=== PATIENT | male | born 1935 | race Caucasian/White ===

== ENCOUNTER 2017-05-31 15:31 | Inpatient (IN) | payer OTHER ==
[~2017-05-31] VITALS: Ht 162.6 cm; Wt 75.2 kg
[2017-05-31 16:50] VITALS: BP 171/79; PULSE 51; TEMP 36.4; BMI 28.2
[2017-05-31] MEDS ORDERED: KPP250 PO (16:59)
[2017-05-31] MEDS ORDERED: ATV/1 PO (16:59)
[2017-05-31] MEDS ORDERED: NITROGLYCERIN 0.4 MG SL PER TAB CHARGE SL PRN (17:00)
[2017-05-31] MEDS ORDERED: ACETAMINOPHEN 325 MG TAB PO PRN (17:00)
[2017-05-31] MEDS ORDERED: XRL10 PO (17:00)
[2017-05-31] MEDS ORDERED: LORAZEPAM 1 MG TAB PO PRN (17:00)
[2017-05-31] MEDS ORDERED: POLYETHYLENE (MIRALAX) 17 GM PACK PO PRN ×2 (17:00→22:30)
[2017-05-31] MEDS ORDERED: MAGNESIUM HYDROXIDE SUSP 30 ML UDC PO PRN (17:00)
[2017-05-31] MEDS ORDERED: ALUMINUM/MAGNESIUM/SIMETH (MAALOX MAX) 30 ML UDC PO PRN (17:00)
--- NOTE | 2017-05-31 17:11 | Progress Note ---
Progress Note Date of Service May 31, 2017. Progress Note ATTENDING NOTE : pt is a direct admission form [facility] Full H& P will be done 81 yo M with dementia/hx of polio /prostate Ca/blindness of one eye /Seizure disorder /Hx of PE -resident at [facility] in [place] Hx of complete heart block s/p permanent pacemaker placement in 06/02/2006 Pacemaker interrogation on 05/21/[address] Steele office shows battery /pacemaker Generator at end of life pt is admitted to [facility] telemetry will continue all diet including Xarelto /Aspirin -per Dr Steele NPO past midnight for pace maker battery change tomorrow by Dr Ivette Smallwood MD
[2017-05-31] MEDS ORDERED: PATIENT'S HEIGHT AND/OR WEIGHT NEEDED SCH (17:15)
--- NOTE | 2017-05-31 17:31 | DIAGNOSTIC IMAGING REPORT ---
CHEST ONE VIEW PORTABLE CLINICAL HISTORY: Preoperative chest COMPARISON STUDY: No previous studies for comparison. FINDINGS: The heart is normal in size. There is aortic tortuosity. There is a right subclavian dual-chamber central venous pacemaker. There is no failure. There is no lobar consolidation. There are no pleural effusions. There is mild basilar interstitial thickening likely chronic.[ IMPRESSION: AP portable study. No acute findings. Electronically signed by: Asif Alvarenga M.D. 05/31/2017 5:29 PM Dictated Date/Time: 05/31/2017 5:29 PM
[2017-05-31 18:27] LABS: INR 1.1 (0.9-1.1)
[2017-05-31 18:42] LABS: ALKALINE PHOSPHATASE 95 U/L (45-117); ALT/SGPT 16 U/L (12-78); AST/SGOT 12 U/L (15-37); BLOOD UREA NITROGEN 32 mg/dl (7-18); CALCIUM 8.4 mg/dl (8.5-10.1); CARBON DIOXIDE 27 mmol/L (21-32); CREATININE 1.19 mg/dl (0.60-1.40); GLUCOSE 95 mg/dl (70-99); POTASSIUM 4.5 mmol/L (3.5-5.1); SODIUM 142 mmol/L (136-145)
[2017-05-31 19:04] LABS: HEMOGLOBIN 12.9 g/dL (14.0-18.0); MEAN CELL VOLUME 90.1 fL (80-100); MEAN CORPUSCULAR HEMOGLOBIN 29.8 pg (25-34); MEAN PLATELET VOLUME 11.6 fL (7.4-10.4); PLATELET COUNT 199 K/uL (130-400); RED CELL DISTRIBUTION WIDTH CV 14.2 % (11.5-14.5); RED CELL DISTRIBUTION WIDTH SD 46.6 fL (36.4-46.3)
[2017-05-31 19:07] LABS: MEAN CORPUSCULAR HGB CONC 33.1 g/dl (32-36)
[2017-05-31] MEDS ORDERED: RIVAROXABAN 20 MG TAB PO SCH (19:30)
[2017-05-31 20:00] VITALS: O2SAT 96
[2017-05-31] MEDS: LEVETIRACETAM 500 MG TAB PO SCH (20:09)
[2017-05-31 20:27] VITALS: BP 174/72; PULSE 49; TEMP 36.3; O2SAT 97
--- NOTE | 2017-05-31 20:49 | History and Physical ---
History & Physical Date & Time of Service: May 31, 2017 at 20:49 Chief Complaint: Pacemaker End Of Life Primary Care Physician: Bao Guzmán .MD History of Present Illness Source: clinic records ([facility] Cardiology Dr Steele /office note ) This is a 81 yo M with medical hx Advance dementia , hx of Polio -per document , BPH , Prostate CA, Seizure disorder, hx of PE on chronic anticoagulation , hx complete heart block s/p pace maker placement -was sent from [facility] office as a direct admit for pacemaker generator change Pt is a resident at [facility] , s/p permanent pacemaker placement on 06/02/2006 for 3 rd degree Av block , recent pacemaker interrogation on 05/21/17 shows ,end of battery life . Evaluated by [facility] Dr Steele today , pt is sent form [facility] office as a direct admission for pacemaker generator change tomorrow AM . pt unable to provide any history due to advanced dementia. Social History Smoking Status: Unknown if Ever Smoked Multi-Drug Resistant Organisms History of MDRO: No Allergies Coded Allergies: No Known Allergies (Unverified , 05/31/17) Home Medications Scheduled Levetiractam (Keppra), 1,000 MG PO BID Rivaroxaban (Xarelto), 20 MG PO DAILY Scheduled PRN Lorazepam (Ativan), 0.5 MG PO Q6H PRN for Anxiety/Agitation Review of Systems Unable to obtain due to dementia Physical Exam Vital Signs Date Time Temp Pulse Resp B/P (MAP) Pulse Ox O2 Delivery O2 Flow Rate FiO2 05/31/17 20:27 36.3 49 20 174/72 (106) 97 Room Air 05/31/17 16:50 36.4 51 18 171/79 Room Air General Appearance: + pertinent finding (elderly male, advance dementia , agitated ) Head: normocephalic, atraumatic Eyes: normal inspection, + pertinent finding (per office note hxof ) Neck: no JVD Respiratory/Chest: lungs clear, normal breath sounds, no respiratory distress Cardiovascular: + bradycardia Abdomen/GI: soft Genitourinary - Male: + pertinent finding (gross hematuria ) Extremities/Musculoskelatal: no pedal edema Neurologic/Psych: + disoriented, + pertinent finding (adavced dementia , no orientation to time ,place and person , mumbling to himself ) Diagnostics Laboratory Results Results Past 24 Hours Test 05/31/17 16:49 05/31/17 17:59 Range/Units White Blood Count 7.50 4.8-10.8 K/uL Red Blood Count 4.33 4.7-6.1 M/uL Hemoglobin 12.9 14.0-18.0 g/dL Hematocrit 39.0 42-52 % Mean Corpuscular Volume 90.1 80-100 fL Mean Corpuscular Hemoglobin 29.8 25-34 pg Mean Corpuscular Hemoglobin Concent 33.1 32-36 g/dl RDW Standard Deviation 46.6 36.4-46.3 fL RDW Coefficient of Variation 14.2 11.5-14.5 % Platelet Count 199 130-400 K/uL Mean Platelet Volume 11.6 7.4-10.4 fL Prothrombin Time 12.0 9.0-12.0 SECONDS Prothromb Time International Ratio 1.1 0.9-1.1 Sodium Level 142 136-145 mmol/L Potassium Level 4.5 3.5-5.1 mmol/L Chloride Level 109 98-107 mmol/L Carbon Dioxide Level 27 21-32 mmol/L Anion Gap 6.0 3-11 mmol/L Blood Urea Nitrogen 32 7-18 mg/dl Creatinine 1.19 0.60-1.40 mg/dl Est Creatinine Clear Calc Drug Dose 43.5 ml/min Estimated GFR () 65.1 Estimated GFR (Non- 56.2 BUN/Creatinine Ratio 27.3 10-20 Random Glucose 95 70-99 mg/dl Calcium Level 8.4 8.5-10.1 mg/dl Total Bilirubin 0.3 0.2-1 mg/dl Direct Bilirubin < 0.1 0-0.2 mg/dl Aspartate Amino Transf (AST/SGOT) 12 15-37 U/L Alanine Aminotransferase (ALT/SGPT) 16 12-78 U/L Alkaline Phosphatase 95 45-117 U/L Total Protein 7.0 6.4-8.2 gm/dl Albumin 3.0 3.4-5.0 gm/dl Globulin 4.0 2.5-4.0 gm/dl Albumin/Globulin Ratio 0.8 0.9-2 Diagnostic Radiology CHEST ONE VIEW PORTABLE CLINICAL HISTORY: Preoperative chest COMPARISON STUDY: No previous studies for comparison. FINDINGS: The heart is normal in size. There is aortic tortuosity. There is a right subclavian dual-chamber central venous pacemaker. There is no failure. There is no lobar consolidation. There are no pleural effusions. There is mild basilar interstitial thickening likely chronic.[ IMPRESSION: AP portable study. No acute findings. EKG Vent. rate 50 BPM [place] interval * ms QRS duration 160 ms QT/QTc 502/457 ms P-R-T axes * -70 68 Ventricular-paced rhythm Abnormal ECG No previous ECGs available Impression Assessment and Plan PACEMAKER END OF LIFE ,GENERATOR/BATTERY EXCHANGE : hx of sinus node dysfunction /3rd degree Av block s/p permanent pacemaker placement on 05/2006 per Cardiology office note -last pacemaker interrogation on 05/21/17 shows end of battery life sent form [facility] as a direct admission to [facility] for pacemaker generator change pt is admitted to Tele EKG sinus tiffany cardia with paced rhythm NPO past midnight Cardiology Dr Steele consulted URINARY RETENTION /HX OF BPH pt had minimum dark /clement color urine out put on the floor incontinent of urine Bladder USG show approx ~250 ml of residual urine hx of BPH /malignant adeno Ca of Prostate , PSA level stable since 2010 per office record unable to insert Mcpherson catheter /developed gross hematuria after attempt ( pt is on Xarelto and Aspirin ) Urology consulted GROSS HEMATURIA WITH ATTEMPT TO INSERT MCPHERSON CATHETER : possible due to localized trauma due to catheter attempt Xarelto /Aspirin on hold , coags within normal limit check H&H q 12 send urine sample for UA /Culture Urology eval HX OF SEIZURE DISORDER: no Sz activity noted on Keppra ADVANCED DEMENTIA : caution for sundowning /delirium fall /aspiration precaution HX OF PULMONARY EMBOLISM : hold Xarelto for hematuria HX OF CVA : Aspirin on hold for hematuria HX OF UTI : ordered for UA and culture sensitivity FULL CODE : DVT PROPHYLAXIS : Scd and teds no anticoagulation due to hematuria DISPOSITION : expected to return back to [facility] once medically stable Social service consulted for discharge planning Level of Care Telemetry Advanced Directives Existing Living Will: No Existing Power of Para Machine Operator: No Resuscitation Status FULL RESUSCITATION VTE Prophylaxis VTE Risk Assessment Done? Y/N: Yes Risk Level: Moderate Given or contraindicated: T.E.DAramis Stockings, SCD's Additional Copies To Raina Steele D.O.
[2017-05-31] MEDS ORDERED: PNEUMOCOCCAL ADMINISTRATION CHARGE ONE (21:15)
[2017-05-31] MEDS ORDERED: PNEUMOCOCCAL POLYSACCHARIDES 25 MCG/0.5 ML VIAL/SYR IM. ONE (21:15)
[2017-05-31] MEDS ORDERED: SODIUM CHLORIDE 0.9% 1000ML 1,000 ML IV SCH (22:15)
[2017-05-31] MEDS ORDERED: POLYETHYLENE (MIRALAX) 17 GM PACK PO ONE (22:19)
[2017-05-31 23:06] VITALS: BP 145/68; PULSE 53; TEMP 36.6; O2SAT 98
[2017-06-01 00:27] LABS: HEMATOCRIT 36.2 % (42-52)
[2017-06-01 05:42] VITALS: BP 116/64; PULSE 54; TEMP 35.9; O2SAT 98
[2017-06-01 05:44] LABS: HEMATOCRIT 37.5 % (42-52); HEMOGLOBIN 12.3 g/dL (14.0-18.0); MEAN CELL VOLUME 89.5 fL (80-100); MEAN CORPUSCULAR HEMOGLOBIN 29.4 pg (25-34); MEAN CORPUSCULAR HGB CONC 32.8 g/dl (32-36); MEAN PLATELET VOLUME 11.2 fL (7.4-10.4); PLATELET COUNT 196 K/uL (130-400); RED CELL DISTRIBUTION WIDTH CV 14.1 % (11.5-14.5); RED CELL DISTRIBUTION WIDTH SD 46.1 fL (36.4-46.3); WHITE BLOOD COUNT 7.82 K/uL (4.8-10.8)
[2017-06-01 06:23] LABS: ALBUMIN 2.7 gm/dl (3.4-5.0); ALT/SGPT 13 U/L (12-78); BLOOD UREA NITROGEN 28 mg/dl (7-18); CALCIUM 7.8 mg/dl (8.5-10.1); CARBON DIOXIDE 26 mmol/L (21-32); CREATININE 0.99 mg/dl (0.60-1.40); GLUCOSE 75 mg/dl (70-99); POTASSIUM 4.2 mmol/L (3.5-5.1); SODIUM 144 mmol/L (136-145)
[2017-06-01 06:25] LABS: ALKALINE PHOSPHATASE 73 U/L (45-117); AST/SGOT 11 U/L (15-37); PHOSPHORUS 3.2 mg/dl (2.5-4.9); TOTAL PROTEIN 6.3 gm/dl (6.4-8.2)
[2017-06-01 07:41] VITALS: BP 129/72; PULSE 54; TEMP 36.4; O2SAT 97
[2017-06-01] MEDS: LEVETIRACETAM 500 MG TAB PO SCH ×2 (09:00→20:28)
[2017-06-01] MEDS ORDERED: ASPIRIN 81 MG ECTAB PO SCH (09:00)
--- NOTE | 2017-06-01 10:19 | Urology Consultation ---
History General Date of Service: Jun 01, 2017. Chief Complaint: incomplete bladder emptying, gross hematuria Primary Care Physician: Bao Guzmán MD If yes, why?: unknown if previously saw urology History of Present Illness 81 yo male with advanced dementia admitted for pacemaker generator change. consulted for incomplete bladder emptying and gross hematuria. Pt with advance dementia, and unable to provide any history. Per reports, he has a hx of BPH and prostate cancer. I have no information on how he was treated for prostate cancer or recent PSA. Pt noted to have >250ml on PVR on admission. Failed attempt to straight cath by staff resulted in gross hematuria. Per RN, the pt has been voiding and leaking in the bed. No hematuria at this time. She also states he is combative and has already pulled out his IV since admission. UC&S pending. Cr is normal. Laboratory Labs were reviewed and are within normal limits unless listed below. Labs are available in the chart and at [facility] Past History BPH, cancer - prostate, dementia, pulmonary embolism, seizure, other (Polio, 3rd degree AV block ) Past Surgical History: other (unknown-pt unable to provide history d/t AMS) Family History unknown- pt unable to provide hx d/t AMS. Social History unknown- pt unable to provide hx d/t AMS Smoking: other (unknown) History of MDRO No Allergies Coded Allergies: No Known Allergies (Unverified , 05/31/17) Medications Home Medications: Home Meds and Scripts Medications Dose Route/Sig Max Daily Dose Days Date Category Xarelto (Rivaroxaban) 10 Mg Tab 20 Mg PO DAILY 10 05/31/17 Reported Ativan (Lorazepam) 1 Mg Tab 0.5 Mg PO Q6H PRN 05/31/17 Reported Keppra (Levetiractam) 250 Mg Tab 1,000 Mg PO BID 05/31/17 Reported Inpatient Medications: Current Inpatient Medications Medications (Trade) Dose Ordered Sig/Adam Route Start Time Stop Time Status Last Admin Dose Admin Acetaminophen (Tylenol Tab) 650 mg Q4H PRN PO 05/31/17 17:00 06/30/17 16:59 Al Hydrox/Mg Hydrox/Simethicone (Maalox Max Susp) 15 ml Q4H PRN PO 05/31/17 17:00 06/30/17 16:59 Magnesium Hydroxide (Milk Of Magnesia Susp) 30 ml Q12H PRN PO 05/31/17 17:00 06/30/17 16:59 Nitroglycerin (Nitrostat Tab) 0.4 mg UD PRN SL 05/31/17 17:00 06/30/17 16:59 Levetiracetam (Keppra Tab) 1,000 mg BID PO 05/31/17 21:00 06/30/17 20:59 05/31/17 20:09 1,000 MG Lorazepam (Ativan Tab) 0.5 mg Q6H PRN PO 05/31/17 17:00 06/30/17 16:59 Sodium Chloride 1,000 ml @ 80 mls/hr [id number] IV 05/31/17 22:15 06/01/17 10:44 06/01/17 01:14 80 MLS/HR Polyethylene (Miralax Powder Packet) 17 gm BID PRN PO 05/31/17 22:30 06/30/17 16:59 Senna (Senokot Tab) 17.2 mg QAM PO 06/01/17 09:00 07/01/17 08:59 Tamsulosin HCl (Flomax Cap) 0.4 mg HS PO 06/01/17 21:00 07/01/17 20:59 UNV Finasteride (Proscar Tab) 5 mg QAM PO 06/02/17 09:00 07/02/17 08:59 UNV Review of Systems Review of Systems Additional Comments: Pt sleeping, not disturbed as he is combative and a poor historian with advanced dementia. Physical Exam Vital Signs: Vital Signs Past 12 Hours Date Time Temp Pulse Resp B/P (MAP) Pulse Ox O2 Delivery O2 Flow Rate FiO2 06/01/17 08:00 Room Air 06/01/17 07:41 36.4 54 16 129/72 (91) 97 Room Air 06/01/17 05:42 35.9 54 16 116/64 (81) 98 Room Air 06/01/17 04:00 Room Air 06/01/17 00:01 Room Air 05/31/17 23:06 36.6 53 16 145/68 (93) 98 Room Air Physical Exam: General Appearance: no apparent distress Neck: no JVD Respiratory/Chest: no respiratory distress, no accessory muscle use Cardiovascular: no JVD Extremities: normal inspection Neurologic/Psychiatric: + pertinent finding (pt sleeping ) Skin: normal color Assessment & Plan Assessment & Plan A/P: BPH with incomplete bladder emptying, hx of gross hematuria, hx of prostate cancer per reports AFVSS. Given the pt has advanced dementia, is combative, and has already pulled out his IV, will avoid placing a morse catheter at this time and allow the pt to leak. Can check bladder scans qshift, and would only consider straight cathing if absolutely needed or he develops ARF. Will start him on Flomax and finasteride for his BPH. Hopefully this will be enough to help with any BPH and incomplete emptying. Will also check a PSA in the morning with his other labs as he has a history of prostate cancer. Suspect his gross hematuria was r/t attempting a traumatic catheterization. UC& S pending. Will observe for now. Thanks for the consult. Will continue to follow along with primary service.
--- NOTE | 2017-06-01 10:28 | Progress Note ---
Internal Med Progress Note Date of Service: Jun 01, 2017. Vital Signs: Date Time Temp Pulse Resp B/P (MAP) Pulse Ox O2 Delivery O2 Flow Rate FiO2 06/01/17 08:00 Room Air 06/01/17 07:41 36.4 54 16 129/72 (91) 97 Room Air 06/01/17 05:42 35.9 54 16 116/64 (81) 98 Room Air 06/01/17 04:00 Room Air 06/01/17 00:01 Room Air 05/31/17 23:06 36.6 53 16 145/68 (93) 98 Room Air 05/31/17 20:27 36.3 49 20 174/72 (106) 97 Room Air 05/31/17 20:00 96 Room Air 05/31/17 16:50 36.4 51 18 171/79 Room Air Lab Results: Results Past 24 Hours Test 05/31/17 17:59 05/31/17 22:30 05/31/17 23:20 06/01/17 05:15 Range/Units White Blood Count 7.50 7.82 4.8-10.8 K/uL Red Blood Count 4.33 4.19 4.7-6.1 M/uL Hemoglobin 12.9 12.0 12.3 14.0-18.0 g/dL Hematocrit 39.0 36.2 37.5 42-52 % Mean Corpuscular Volume 90.1 89.5 80-100 fL Mean Corpuscular Hemoglobin 29.8 29.4 25-34 pg Mean Corpuscular Hemoglobin Concent 33.1 32.8 32-36 g/dl RDW Standard Deviation 46.6 46.1 36.4-46.3 fL RDW Coefficient of Variation 14.2 14.1 11.5-14.5 % Platelet Count 199 196 130-400 K/uL Mean Platelet Volume 11.6 11.2 7.4-10.4 fL Prothrombin Time 12.0 9.0-12.0 SECONDS Prothromb Time International Ratio 1.1 0.9-1.1 Sodium Level 142 144 136-145 mmol/L Potassium Level 4.5 4.2 3.5-5.1 mmol/L Chloride Level 109 112 98-107 mmol/L Carbon Dioxide Level 27 26 21-32 mmol/L Anion Gap 6.0 6.0 3-11 mmol/L Blood Urea Nitrogen 32 28 7-18 mg/dl Creatinine 1.19 0.99 0.60-1.40 mg/dl Est Creatinine Clear Calc Drug Dose 43.5 52.3 ml/min Estimated GFR () 65.1 81.3 Estimated GFR (Non- 56.2 70.1 BUN/Creatinine Ratio 27.3 28.0 10-20 Random Glucose 95 75 70-99 mg/dl Calcium Level 8.4 7.8 8.5-10.1 mg/dl Total Bilirubin 0.3 0.4 0.2-1 mg/dl Direct Bilirubin < 0.1 < 0.1 0-0.2 mg/dl Aspartate Amino Transf (AST/SGOT) 12 11 15-37 U/L Alanine Aminotransferase (ALT/SGPT) 16 13 12-78 U/L Alkaline Phosphatase 95 73 45-117 U/L Total Protein 7.0 6.3 6.4-8.2 gm/dl Albumin 3.0 2.7 3.4-5.0 gm/dl Globulin 4.0 3.6 2.5-4.0 gm/dl Albumin/Globulin Ratio 0.8 0.8 0.9-2 Urine Color BROWN Urine Appearance CLOUDY CLEAR Urine pH 5.5 4.5-7.5 Urine Specific [place] 1.025 1.000-1.030 Urine Protein 1+ NEG Urine Glucose (UA) NEG NEG Urine Ketones NEG NEG Urine Occult Blood 3+ NEG Urine Nitrite NEG NEG Urine Bilirubin NEG NEG Urine Urobilinogen NEG NEG Urine Leukocyte Esterase NEG NEG Urine RBC >30 0-4 /hpf Urine WBC 10-30 0-5 /hpf Urine Epithelial Cells 0-5 0-5 /lpf Urine Bacteria NEG NEG Phosphorus Level 3.2 2.5-4.9 mg/dl Magnesium Level 2.2 1.8-2.4 mg/dl Prostate Specific Antigen 1.550 0.000-4.000 ng/ml Test 06/01/17 07:00 Range/Units Microbiology Results 05/31/17 Urine Culture, Received Pending
--- NOTE | 2017-06-01 10:55 | Progress Note ---
Internal Med Progress Note Date of Service: Jun 01, 2017. Provider Documentation: SUBJECTIVE: Seen and examined at bedside History unreliable secondary to advanced dementia history Denies Chest pain, SOB, dizziness, dysuria hematuria resolved OBJECTIVE: Vital Signs-as noted below Physical Exam: General Appearance:Moderately built and nourished, no apparent distress Head: normocephalic, Atraumatic Eyes: normal inspection, EOMI, PERRL Neck: supple, Trachea midline Respiratory/Chest: Normal breath sounds, CTA Cardiovascular: S1, S2, No murmur Abdomen/GI:Soft, Non tender, Bowel sounds present Extremities/Musculoskelatal:normal inspection, no edema Neurologic/Psych:Advanced dementia, Complete neuro exam not performed Skin: normal color, warm Lab data as noted below. ASSESSMENT & PLAN: Pacemaker End of Life, Needs Generator/Battery Exchange: H/O sinus node dysfunction/3rd degree Av block s/p permanent pacemaker placement on 05/2006 Last pacemaker interrogation on 05/21/17 shows end of battery life EKG sinus tiffany cardia with ventricular paced rhythm and PVCs NPO for now Cardiology Dr Steele consulted Urinary Retention H/O BPH, Prostate Cancer Gross hematuria likely secondary to traumatic catheterization PSA level pending Hold Xarelto, Aspirin for now Started on Tamsulosin, Finasteride Monitor Hb Bladder Scan to r/o retention Appreciate Urology Input Urine culture pending H/O Seizure Disorder: Continue Keppra Advanced Dementia: fall /aspiration precaution H/O PE: hold Xarelto for now as hematuria Plan to resume Xarelto tomorrow if stable H/O CVA : Aspirin on hold for hematuria DVT Px: SCDs Code Status: Full Code Disposition: Plan to discharge back to [facility] once medically stable Social service consulted Vital Signs: Date Time Temp Pulse Resp B/P (MAP) Pulse Ox O2 Delivery O2 Flow Rate FiO2 06/01/17 08:00 Room Air 06/01/17 07:41 36.4 54 16 129/72 (91) 97 Room Air 06/01/17 05:42 35.9 54 16 116/64 (81) 98 Room Air 06/01/17 04:00 Room Air 06/01/17 00:01 Room Air 05/31/17 23:06 36.6 53 16 145/68 (93) 98 Room Air 05/31/17 20:27 36.3 49 20 174/72 (106) 97 Room Air 05/31/17 20:00 96 Room Air 05/31/17 16:50 36.4 51 18 171/79 Room Air Lab Results: Results Past 24 Hours Test 05/31/17 17:59 05/31/17 22:30 05/31/17 23:20 06/01/17 05:15 Range/Units White Blood Count 7.50 7.82 4.8-10.8 K/uL Red Blood Count 4.33 4.19 4.7-6.1 M/uL Hemoglobin 12.9 12.0 12.3 14.0-18.0 g/dL Hematocrit 39.0 36.2 37.5 42-52 % Mean Corpuscular Volume 90.1 89.5 80-100 fL Mean Corpuscular Hemoglobin 29.8 29.4 25-34 pg Mean Corpuscular Hemoglobin Concent 33.1 32.8 32-36 g/dl RDW Standard Deviation 46.6 46.1 36.4-46.3 fL RDW Coefficient of Variation 14.2 14.1 11.5-14.5 % Platelet Count 199 196 130-400 K/uL Mean Platelet Volume 11.6 11.2 7.4-10.4 fL Prothrombin Time 12.0 9.0-12.0 SECONDS Prothromb Time International Ratio 1.1 0.9-1.1 Sodium Level 142 144 136-145 mmol/L Potassium Level 4.5 4.2 3.5-5.1 mmol/L Chloride Level 109 112 98-107 mmol/L Carbon Dioxide Level 27 26 21-32 mmol/L Anion Gap 6.0 6.0 3-11 mmol/L Blood Urea Nitrogen 32 28 7-18 mg/dl Creatinine 1.19 0.99 0.60-1.40 mg/dl Est Creatinine Clear Calc Drug Dose 43.5 52.3 ml/min Estimated GFR () 65.1 81.3 Estimated GFR (Non- 56.2 70.1 BUN/Creatinine Ratio 27.3 28.0 10-20 Random Glucose 95 75 70-99 mg/dl Calcium Level 8.4 7.8 8.5-10.1 mg/dl Total Bilirubin 0.3 0.4 0.2-1 mg/dl Direct Bilirubin < 0.1 < 0.1 0-0.2 mg/dl Aspartate Amino Transf (AST/SGOT) 12 11 15-37 U/L Alanine Aminotransferase (ALT/SGPT) 16 13 12-78 U/L Alkaline Phosphatase 95 73 45-117 U/L Total Protein 7.0 6.3 6.4-8.2 gm/dl Albumin 3.0 2.7 3.4-5.0 gm/dl Globulin 4.0 3.6 2.5-4.0 gm/dl Albumin/Globulin Ratio 0.8 0.8 0.9-2 Urine Color BROWN Urine Appearance CLOUDY CLEAR Urine pH 5.5 4.5-7.5 Urine Specific [place] 1.025 1.000-1.030 Urine Protein 1+ NEG Urine Glucose (UA) NEG NEG Urine Ketones NEG NEG Urine Occult Blood 3+ NEG Urine Nitrite NEG NEG Urine Bilirubin NEG NEG Urine Urobilinogen NEG NEG Urine Leukocyte Esterase NEG NEG Urine RBC >30 0-4 /hpf Urine WBC 10-30 0-5 /hpf Urine Epithelial Cells 0-5 0-5 /lpf Urine Bacteria NEG NEG Phosphorus Level 3.2 2.5-4.9 mg/dl Magnesium Level 2.2 1.8-2.4 mg/dl Test 06/01/17 07:00 Range/Units Microbiology Results 05/31/17 Urine Culture, Received Pending
[2017-06-01 11:12] VITALS: Ht 162.6 cm; Wt 75.2 kg
[2017-06-01 11:35] VITALS: BP 179/68; PULSE 56; TEMP 36.4; O2SAT 91
--- NOTE | 2017-06-01 11:35 | Cardiology Consultation ---
Cardiology Consultation Date of Service Jun 01, 2017. Cardiology Consultation NOTE COPIED FROM MY OFFICE VISIT ON 05/31/2017 and addendum as noted below Pt referred to EP due to ppm at [facility] Cardiac Problems CHB s/p ppm in 06/02/2006 Probable h/o CVA as has left sided weakness and facial droop HPI: ~ Pt lives in [place] His is with him today He has not been in our pacemaker clinic since Dec 2016-he was to have monthly TTMs but for some reason these have not been done on patient's end He did finally have TTM on 05/21/20179 which shows ppm at [facility] and referred today- turns out device probably at EOL on 05/21/2017 Pt is demented unable to get a history PMH: Patient Active Problem List Diagnosis Code PERS HX POLIO cane started 02/2009 helps now 11/2010uses walker Z86.12 HYPERTROP PROSTATE W/O URIN OB 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 PSA C61 Convulsions (HCC) R56.9 SCREENING FOR MAL NEOPLASMS COLON ~reev due 2017 Z12.11 Blindness, one eye H54.40 History of peptic ulcer disease Z87.11 Advance directive discussed with patient Z71.89 BRADYCARDIA NOS R00.1 INFORMATION INFO Dyslipidemia, goal LDL below 160 E78.5 Chronic rhinitis J31.0 LOSS OF WEIGHT 08/2010 11/2010 +3 lbs R63.4 History of tobacco use Z87.891 Sinoatrial node dysfunction (HCC) I49.5 Cardiac pacemaker in situ Z95.0 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 aspirin 81 MG chewable tablet Take 81 mg by mouth daily. bisacodyl (BISCOLAX) 10 MG suppository Administer 10 mg into the rectum daily. Incontinence Supply Disposable (INCONTINENCE BRIEF MEDIUM) MISC Use as needed for incontinence 100 Each 11 Levetiracetam (KEPPRA) 1000 MG Tablet Take 1 Tab by mouth 2 times a day. 60 Tab 0 LORAzepam (ATIVAN) 0.5 MG Tablet Take 0.5 mg by mouth 2 times a day. AND as needed every 6 hours milk of magnesia (MILK OF MAGNESIA) 400 MG/5ML suspension Take ~by mouth daily as needed for Constipation. Multiple Vitamins-Minerals (MULTIVITAMIN ADULT) TABS Take ~by mouth. QUEtiapine (SEROQUEL) 25 MG Tablet Take 1 Tab by mouth at bedtime. 30 Tab 0 rivaroxaban (XARELTO) 20 MG Tablet Take 1 Tab by mouth daily with dinner. 60 Tab 0 Past Medical History: Diagnosis Date Blindness, one eye rt Bradycardia Cardiac pacemaker in situ Convulsions Hemiplegic cerebral palsy (HCC) lt leg affected History of tobacco use Hyperlipidemia LDL goal < 100 Hypertrophy (benign) of prostate neg bx Personal history of peptic ulcer disease Sinoatrial node dysfunction (HCC) Past Surgical History: Procedure Laterality Date INSERT/REPLACE PACEMAKER,ATRIAL/VENTRICULAR 06/02/2006 Guidant dual chamber OTHER contracture release from polio Review of patient's allergies indicates: No Known Allergies Family History Problem Relation Age of Onset Heart Disorder Mother at 60yo Other [OTHER] Father at 69y Cancer Brother Family Status Relation Status Mother Father Brother Social History Social History Marital status: Spouse name: N/A Number of children: N/A Years of education: N/A Occupational History RETIRED [employer] Social History Main Topics Smoking status: Former Smoker Packs/day: 1.00 Years: 45.00 Types: Cigarettes, Pipe Quit date: 04/05/1995 Smokeless tobacco: Never Used Alcohol use No Comment: quit 1995 no h/o heavy drinking Drug use: No Sexual activity: Yes Partners: Female Other Topics Concern Service No Seat Belt Yes Social History Narrative Cannot read(sick with polio) 05/13/[address] Review of Systems~ Unable to obtain due to dementia Objective: BP 142/68 | Pulse 64 | Ht 5' 4" (1.626m) | Wt 161 lbs (73.029kg) | BMI 27.64 kg/ m | BSA 1.82 m Physical Exam~ Constitutional: No distress. HENT: Head: Normocephalic~and atraumatic. Eyes: EOM~are normal. Neck: Neck supple. Cardiovascular: Normal rate, regular rhythm, S1 normal~and S2 normal. ~ No murmur~heard. Pulses: ~~~~~Radial pulses are 2+~on the right side, and 2+~on the left side. No LE edema b/l right pectoral region; ppm site no evidence of threatened erosion ~ Pulmonary/Chest: Effort normal~and breath sounds normal. No accessory muscle usage. No respiratory distress. He has no decreased breath sounds. He has no wheezes. He has no rhonchi. He has no rales. Abdominal: Soft. Normal appearance. Neurological: He is alert. Right sided facial droop~ Skin: Skin is warm~and dry. RESULTS: Pacemaker Interrogation Today: Pacemaker at EOL as of 05/21/2017 EC03/22/2017: AV paced 60bpm Echocardiogram 2010: EF 71% Grade I diastolic dysfunction Mild AV sclersosis Mild MAC Mild LA dilatation Ascending aortic aneurysm 4.3cm ASSESSMENT: 1. Pacemaker at EOL on 05/21/2017 2. CHB s/p dual chamber pacemaker 06/02/2006 3. Dementia 4. H/o CVA (?on xarelto) PLAN: -Admit to hospital as device is saying on interrogation today that it is at EOL and patient has underlying CHB -Generator change tomorrow -Discussed procedure and risks which include but are not limited to arrhythmias , strokes, heart attacks, , bleeding and infection with the patient's ; she expressed an understanding and wish to proceed. -I will call his again tomorrow when I am at [facility] to get phone consent Pt' s raquel [phone] will call her in am for consent for procedure -Dr. Smallwood in [facility] accepted the patient -Pt should have CBC and BMP -Ok to continue xarelto and his other medications -NPO after midnight -Discharge back to [facility] after the generator change tomorrow -Device and wound check in our office next week Raina Steele DO ADDENDIUM 06/01/2017: Pt got to [facility] ok-no events overnight. Pt for dual chamber pacemaker generator change today; Pt's was obtained over the phone to give consent. If no problems with generator change patient can return back to [facility] after the procedure. raina Steele, DO
--- NOTE | 2017-06-01 11:36 | History & Physical Bridge Note ---
H&P Re-Evaluation Bridge Note: I have examined the patient, reviewed the History & Physical and in the interval since the performance of the History & Physical I have noted the following changes of clinical significance: No changes noted
--- NOTE | 2017-06-01 11:36 | Pre Sedation Assessment ---
Pre Sedation Assessment General Date of Sedation: Jun 01, 2017. Vital Signs Past 12 Hours Date Time Temp Pulse Resp B/P (MAP) Pulse Ox O2 Delivery O2 Flow Rate FiO2 06/01/17 08:00 Room Air 06/01/17 07:41 36.4 54 16 129/72 (91) 97 Room Air 06/01/17 05:42 35.9 54 16 116/64 (81) 98 Room Air 06/01/17 04:00 Room Air 06/01/17 00:01 Room Air Review Cardiovascular: + bradycardia Lungs: lungs clear Pre-Sedation Airway Assessment Smoking Status: Unknown if Ever Smoked Hx of Sleep Apnea: No Hx of difficult intubation: No Short Thick Neck: No Thyro-mental Distance: < or =3 Finger Breadths Oral Cavity: Dentures, Dental Abnormalities Mallampati Classification: Class II ASA Classification: Class II Procedure Planning Contraindications for Sedation: None Current Medications Reviewed: Yes Notes The planned sedation has been discussed with the patient. Informed Consent was obtained. I have identified the patient, determined the appropriateness of sedation and have assessed the patient immediately prior to the procedure. All medicine(s) and interventions are by my order.
[2017-06-01 11:57] LABS: HEMATOCRIT 39.6 % (42-52); HEMOGLOBIN 13.2 g/dL (14.0-18.0)
[2017-06-01] MEDS ORDERED: BUPIVACAINE 0.5 % 5 MG/1 ML MPF 30ML VIAL ONE (12:47)
[2017-06-01] MEDS ORDERED: LIDOCAINE HCL 1% 20 ML VIAL ONE (12:47)
[2017-06-01] MEDS ORDERED: BACITRACIN 50000 UNIT VIAL ONE (12:47)
[2017-06-01] MEDS ORDERED: MIDAZOLAM HCL 5 MG/ML 1 ML VIAL ONE (12:50)
[2017-06-01] MEDS ORDERED: FENTANYL CITRATE INJ 50 MCG/1 ML 2 ML VIAL ONE (12:52)
[2017-06-01] MEDS ORDERED: CEFAZOLIN SOD 1 GM VIAL ONE (13:07)
--- NOTE | 2017-06-01 13:51 | Post Sedation Assessment ---
Post Sedation Assessment General Date of Sedation Jun 01, 2017. Vital Signs: Vital Signs Past 12 Hours Date Time Temp Pulse Resp B/P (MAP) Pulse Ox O2 Delivery O2 Flow Rate FiO2 06/01/17 13:45 71 16 135/76 (95) 95 Room Air 06/01/17 13:40 60 16 135/66 (89) 96 Room Air 06/01/17 12:00 Room Air 06/01/17 11:35 36.4 56 16 179/68 (105) 91 Room Air 06/01/17 08:00 Room Air 06/01/17 07:41 36.4 54 16 129/72 (91) 97 Room Air 06/01/17 05:42 35.9 54 16 116/64 (81) 98 Room Air 06/01/17 04:00 Room Air Post Procedure Recovery Score Activity: (2) Moves 4 extremities * Respiration: (2) Deep breath/cough Circulation: (2) +/-20% PreAnes Value Consciousness: (2) Fully Awake Oxygen Saturation: (2) > 92% On Room Air Post Anesthesia Score: 10 Discharge Sedation Level of Care: Fast Track Phase II Post Sedation Plan On clinical assessment, the patient appears to have tolerated the sedation without complications. Patient is recovering as anticipated. Patient will continue to be monitored by nursing and may be discharged when sedation discharge criteria are met per below protocol. Upon Completions of procedure and additional 15 minutes continue every 5 minute vital signs and the P.A.R. score; then discharge to a Phase I or Fast Track to Phase II per the following guidelines: * Discharge Patient to appropriate Phase II area if PAR is 8 or greater or return to pre- procedure baseline. The post - procedure orders will be as directed. * If PAR score is less than 8 or not return to pre-procedure baseline then patient will follow Phase I monitoring till PAR is reached for Phase II. The Phase I may be done in procedure room or may call to secure a Phase I area. * If naloxone or flumazenil are used for reversal, hold in Phase I for an additional 60 -120 minutes before discharge to Phase II. Please call the Sedation Physician to re-evaluate and complete post-note for discharge to Phase II area. Do NOT discharge from procedure sedation or Phase 1 until post- sedation evaluation note is complete by procedure /sedation MD Sedation Discharge Instructions to be given to the patient at discharge to home.
--- NOTE | 2017-06-01 13:55 | [facility] Post Operative Brief Note ---
Immediate Operative Summary Operative Date Jun 01, 2017. Pre-Operative Diagnosis chb, ppm at EOL Post-Operative Diagnosis same Procedure(s) Performed dual chamber pacemaker generator change Surgeon dariusz castano Manager Welding Surgeon(s) none Estimated Blood Loss <5cc Findings See Below see offiical report Fluids (cc crystalloids) 50cc Specimens none Drains None Anesthesia Type IV Sedat Cons RN Only Complication(s) none Disposition Accompanied Pt To Recover: yes Disposition: PCU
[2017-06-01 16:00] VITALS: BP_SYST 190; BP_SYST 206; BP_DIAS 67; BP_DIAS 73; PULSE 63; TEMP 36.3; O2SAT 96
[2017-06-01] MEDS ORDERED: HydrALAZINE HCL 20 MG/ML VIAL IV. PRN (17:00)
[2017-06-01] MEDS: SENNA 8.6 MG TAB PO SCH (17:32)
[2017-06-01 19:28] LABS: HEMATOCRIT 42.1 % (42-52); HEMOGLOBIN 13.9 g/dL (14.0-18.0)
[2017-06-01 19:36] VITALS: BP 132/60; PULSE 88; TEMP 36.7; O2SAT 98
[2017-06-01] MEDS ORDERED: TAMSULOSIN HCL 0.4 MG CAP PO SCH (21:00)
[2017-06-01 22:09] LABS: CALCIUM 8.3 mg/dl (8.5-10.1); CREATININE 1.26 mg/dl (0.60-1.40); POTASSIUM 3.8 mmol/L (3.5-5.1)
[2017-06-01] MEDS ORDERED: POTASSIUM CHLORIDE 10 MEQ TABCR PO STA (22:10)
[2017-06-01] MEDS ORDERED: LACTATED RINGER'S 1000ML 1,000 ML IV ONE (22:15)
[2017-06-01 23:45] VITALS: BP 141/85; PULSE 103; TEMP 36.5; O2SAT 94
[2017-06-02] VITALS: O2SAT 94
[2017-06-02 04:00] VITALS: BP 161/72; PULSE 70; TEMP 36.7; O2SAT 94; O2SAT 98
[2017-06-02 07:38] VITALS: BP 122/53; PULSE 62; TEMP 36.8; O2SAT 96
[2017-06-02] MEDS: LEVETIRACETAM 500 MG TAB PO SCH (08:26)
[2017-06-02] MEDS: SENNA 8.6 MG TAB PO SCH (09:00)
[2017-06-02] MEDS ORDERED: FINASTERIDE 5 MG TAB PO SCH (09:00)
--- NOTE | 2017-06-02 09:23 | Progress Note ---
Internal Med Progress Note Date of Service: Jun 02, 2017. Provider Documentation: SUBJECTIVE: Seen and examined at bedside Doing well this morning History unreliable secondary to advanced dementia history Denies Chest pain, SOB, dizziness Hematuria resolved OBJECTIVE: Vital Signs-as noted below Physical Exam: General Appearance:Moderately built and nourished, no apparent distress Head: normocephalic, Atraumatic Eyes: normal inspection, EOMI, PERRL Neck: supple, Trachea midline Respiratory/Chest: Normal breath sounds, CTA Cardiovascular: S1, S2, No murmur Abdomen/GI:Soft, Non tender, Bowel sounds present Extremities/Musculoskelatal:normal inspection, no edema Neurologic/Psych:Advanced dementia, Complete neuro exam not performed Skin: normal color, warm Lab data as noted below. ASSESSMENT & PLAN: Pacemaker End of Life, Needs Generator/Battery Exchange: H/O sinus node dysfunction/3rd degree Av block s/p permanent pacemaker placement on 05/2006 Last pacemaker interrogation on 05/21/17 shows end of battery life EKG sinus tiffany cardia with ventricular paced rhythm and PVCs Appreciate Cardiology Dr Steele help Dual chamber pacemaker generator change completed POD # 1 Urinary Retention H/O BPH, Prostate Cancer Gross hematuria likely secondary to traumatic catheterization, resolved PSA levels:1.55 Resume Xarelto, Aspirin Continue Tamsulosin, Finasteride Monitor Hb Bladder Scan to r/o retention Appreciate Urology Input Urine culture: Normal Jil H/O Seizure Disorder: Continue Keppra Advanced Dementia: fall /aspiration precaution H/O PE: hold Xarelto for now as hematuria Plan to resume Xarelto tomorrow if stable H/O CVA : Aspirin on hold for hematuria DVT Px: SCDs Code Status: Full Code Disposition: Plan to discharge back to [facility] today Follow up with your PCP on June 08, 2017 at 12:45pm Follow up with your Urologist in 2 weeks Follow up with your Medical Assistant Instructor for pacemaker check on June 10, 2017 at 1:30pm Seek immediate medical attention if your symptoms reoccur or worsen Vital Signs: Date Time Temp Pulse Resp B/P (MAP) Pulse Ox O2 Delivery O2 Flow Rate FiO2 06/02/17 07:38 36.8 62 18 122/53 (76) 96 Room Air 06/02/17 04:00 36.7 70 18 161/72 (101) 98 Room Air 06/02/17 04:00 94 Room Air 06/02/17 00:00 94 Room Air 06/01/17 23:45 36.5 103 19 141/85 (103) 94 Room Air 06/01/17 20:00 Room Air 06/01/17 19:36 36.7 88 20 132/60 (84) 98 Room Air 06/01/17 16:00 36.3 63 16 206/73 (117) 96 Room Air 190/67 (108) 06/01/17 16:00 Room Air 06/01/17 13:50 59 16 146/87 (106) 95 Room Air 06/01/17 13:45 71 16 135/76 (95) 95 Room Air 06/01/17 13:40 60 16 135/66 (89) 96 Room Air 06/01/17 12:00 Room Air 06/01/17 11:35 36.4 56 16 179/68 (105) 91 Room Air Lab Results: Results Past 24 Hours Test 06/01/17 11:36 06/01/17 18:54 06/01/17 21:10 06/01/17 22:14 Range/Units Hemoglobin 13.2 13.9 14.0-18.0 g/dL Hematocrit 39.6 42.1 42-52 % Sodium Level 141 136-145 mmol/L Potassium Level 3.8 3.5-5.1 mmol/L Chloride Level 109 98-107 mmol/L Carbon Dioxide Level 26 21-32 mmol/L Anion Gap 7.0 3-11 mmol/L Blood Urea Nitrogen 24 7-18 mg/dl Creatinine 1.26 0.60-1.40 mg/dl Est Creatinine Clear Calc Drug Dose 41.9 ml/min Estimated GFR () 60.7 Estimated GFR (Non- 52.4 BUN/Creatinine Ratio 19.0 10-20 Random Glucose 108 70-99 mg/dl Calcium Level 8.3 8.5-10.1 mg/dl Magnesium Level 2.1 1.8-2.4 mg/dl Thyroid Stimulating Hormone (TSH) 3.690 0.300-4.500 uIu/ml Bedside Glucose 111 70-99 mg/dl Test 06/02/17 04:44 Range/Units
[2017-06-02] MEDS ORDERED: FLM4 PO (09:27)
[2017-06-02] MEDS ORDERED: MRLP17X PO (09:27)
[2017-06-02] MEDS ORDERED: PRS5 PO (09:27)
--- NOTE | 2017-06-02 09:28 | Discharge Instructions ---
Discharge Instructions Date of Service Jun 02, 2017. Admission Reason for Admission: Pacemaker End Of Life Discharge Discharge Diagnosis / Problem: Pacemaker End of Life, Urinary Retention, BPH Discharge Goals Goal(s): Decrease discomfort, Improve function Activity Recommendations Activity Limitations: resume your previous activity Exercise/Sports Limitations: as tolerated . Instructions / Follow-Up Instructions / Follow-Up Follow up with your PCP on June 08, 2017 at 12:45pm Follow up with your Urologist in 2 weeks Follow up with your Booky for pacemaker check on June 10, 2017 at 1:30pm Seek immediate medical attention if your symptoms reoccur or worsen Current Hospital Diet Patient's current hospital diet: AHA Diet (Heart Healthy) Discharge Diet Recommended Diet: AHA Diet (Heart Healthy) Procedures Procedures Performed: dual chamber pacemaker generator change Pending Studies Studies pending at discharge: no Medical Emergencies . Who to Call and When: Medical Emergencies: If at any time you feel your situation is an emergency, please call 911 immediately. . Non-Emergent Contact Non-Emergency issues call your: Primary Care Provider, Booky, Urologist Call Non-Emergent contact if: you have a fever, your pain is not controlled, your pain is worsening, your pain is unusual for you, your pain is concerning you, wound has increased drainage, wound has increased redness, wound has increased pain, you have any medication questions Seek immediate medical attention if your symptoms reoccur or worsen . . "Provider Documentation" section prepared by Dg Reilly. . VTE Core Measure Inpt VTE Proph given/why not?: Kristy Velasquez, SCD's
[2017-06-02] MEDS ORDERED: ASPEC81 PO (09:30)
[2017-06-02] MEDS ORDERED: QUET1TAB91 PO (09:31)
--- NOTE | 2017-06-02 09:32 | Discharge Summary ---
Discharge Summary Date of Service Jun 02, 2017. Discharge Summary Admission Date: May 31, 2017 at 16:27 Discharge Date: Jun 02, 2017 Discharge Disposition: Personal care Principal Diagnosis: Pacemaker End of Life, Urinary Retention, BPH Procedures: CXR: AP portable study. No acute findings. Consultations: Cardiology, Urology Pending Studies/Follow-Up: Follow up with your PCP on June 08, 2017 at 12:45pm Follow up with your Urologist in 2 weeks Follow up with your Diesel Scoop Operator for pacemaker check on June 10, 2017 at 1:30pm Seek immediate medical attention if your symptoms reoccur or worsen Medication Reconciliation New Medications: Finasteride (Finasteride) 5 Mg Tab 5 MG PO QAM for 30 Days, #30 TAB Polyethylene (Miralax) 17 Gm Pow 17 GM PO DAILY PRN for Constipation for 7 Days, #7 EA Tamsulosin HCl (Tamsulosin HCl) 0.4 Mg Cap 0.4 MG PO HS for 30 Days, #30 CAP Continued Medications: Aspirin (Aspirin EC Low Dose) 81 Mg Ectab 81 MG PO DAILY Levetiractam (Keppra) 250 Mg Tab 1000 MG PO BID Lorazepam (Ativan) 1 Mg Tab 0.5 MG PO Q6H PRN for Anxiety/Agitation, TAB Quetiapine Fumarate (Seroquel) 25 Mg Tab 1 TAB PO HS for 30 Days, #30 TAB 0 Refills Rivaroxaban (Xarelto) 10 Mg Tab 20 MG PO DAILY for 10 Days, #20 TAB Admission Information HPI (per Admitting provider): This is a 81 yo M with medical hx Advance dementia , hx of Polio -per document , BPH , Prostate CA, Seizure disorder, hx of PE on chronic anticoagulation , hx complete heart block s/p pace maker placement -was sent from [facility] office as a direct admit for pacemaker generator change Pt is a resident at [facility] , s/p permanent pacemaker placement on 06/02/2006 for 3 rd degree Av block , recent pacemaker interrogation on 05/21/17 shows ,end of battery life . Evaluated by [employer] Cr[employer] Dr Steele today , pt is sent form [facility] office as a direct admission for pacemaker generator change tomorrow AM . pt unable to provide any history due to advanced dementia. Physical Exam (per Admitting): General Appearance: + pertinent finding (elderly male, advance dementia , agitated ) Head: normocephalic, atraumatic Eyes: normal inspection, + pertinent finding (per office note hxof ) Neck: no JVD Respiratory/Chest: lungs clear, normal breath sounds, no respiratory distress Cardiovascular: + bradycardia Abdomen/GI: soft Genitourinary - Male: + pertinent finding (gross hematuria ) Extremities/Musculoskelatal: no pedal edema Neurologic/Psych: + disoriented, + pertinent finding (adavced dementia , no orientation to time ,place and person , mumbling to himself ) Hospital Course Pacemaker End of Life, Needs Generator/Battery Exchange: H/O sinus node dysfunction/3rd degree Av block s/p permanent pacemaker placement on 05/2006 Last pacemaker interrogation on 05/21/17 shows end of battery life EKG sinus tiffany cardia with ventricular paced rhythm and PVCs Appreciate Cardiology Dr Steele help Dual chamber pacemaker generator change completed POD # 1 Urinary Retention H/O BPH, Prostate Cancer Gross hematuria likely secondary to traumatic catheterization, resolved PSA levels:1.55 Resume Xarelto, Aspirin Continue Tamsulosin, Finasteride Monitor Hb Bladder Scan to r/o retention Appreciate Urology Input Urine culture: Normal Jil H/O Seizure Disorder: Continue Keppra Advanced Dementia: fall /aspiration precaution H/O PE: hold Xarelto for now as hematuria Plan to resume Xarelto tomorrow if stable H/O CVA : Aspirin on hold for hematuria DVT Px: SCDs Code Status: Full Code Disposition: Plan to discharge back to [facility] today Follow up with your PCP on June 08, 2017 at 12:45pm Follow up with your Urologist in 2 weeks Follow up with your Diesel Scoop Operator for pacemaker check on June 10, 2017 at 1:30pm Seek immediate medical attention if your symptoms reoccur or worsen Total time spent on discharge = 35 minutes This includes examination of the patient, discharge planning, medication reconciliation, and communication with other providers. Discharge Instructions Discharge Instructions Date of Service Jun 02, 2017. Admission Reason for Admission: Pacemaker End Of Life Discharge Discharge Diagnosis / Problem: Pacemaker End of Life, Urinary Retention, BPH Discharge Goals Goal(s): Decrease discomfort, Improve function Activity Recommendations Activity Limitations: resume your previous activity Exercise/Sports Limitations: as tolerated . Instructions / Follow-Up Instructions / Follow-Up Follow up with your PCP on June 08, 2017 at 12:45pm Follow up with your Urologist in 2 weeks Follow up with your Diesel Scoop Operator for pacemaker check on June 10, 2017 at 1:30pm Seek immediate medical attention if your symptoms reoccur or worsen Current Hospital Diet Patient's current hospital diet: AHA Diet (Heart Healthy) Discharge Diet Recommended Diet: AHA Diet (Heart Healthy) Procedures Procedures Performed: dual chamber pacemaker generator change Pending Studies Studies pending at discharge: no Medical Emergencies . Who to Call and When: Medical Emergencies: If at any time you feel your situation is an emergency, please call 911 immediately. . Non-Emergent Contact Non-Emergency issues call your: Primary Care Provider, Diesel Scoop Operator, Urologist Call Non-Emergent contact if: you have a fever, your pain is not controlled, your pain is worsening, your pain is unusual for you, your pain is concerning you, wound has increased drainage, wound has increased redness, wound has increased pain, you have any medication questions Seek immediate medical attention if your symptoms reoccur or worsen . . "Provider Documentation" section prepared by Dg Reilly. . VTE Core Measure Inpt VTE Proph given/why not?: Kristy Velasquez, DEDRICK's <Electronically signed by Dg Reilly MD> Signed: 06/02/17 0928 Signed: The status of this report is Signed * If report status is Draft, the document has not been finalized by the responsible provider.
--- NOTE | 2017-06-02 10:09 | Progress Note ---
Subjective Date of Service: Jun 02, 2017. Subjective Pt evaluation today including: conversation w/ patient, chart review Voiding: incontinence 81 yo male with BPH with incontinence. Per RN, pt voiding on his own. Also continues to leak. No significant PVR overnight. He has been started on Flomax and finasteride with no evidence of orthostasis. Continue to be intermittently combative per nursing staff. Review of Systems Pt stating he is cold and wants pants to wear this morning, but unable to answer other ROS questions d/t dementia. Objective Vital Signs Date Time Temp Pulse Resp B/P (MAP) Pulse Ox O2 Delivery O2 Flow Rate FiO2 06/02/17 08:00 Room Air 06/02/17 07:38 36.8 62 18 122/53 (76) 96 Room Air 06/02/17 04:00 36.7 70 18 161/72 (101) 98 Room Air 06/02/17 04:00 94 Room Air 06/02/17 00:00 94 Room Air 06/01/17 23:45 36.5 103 19 141/85 (103) 94 Room Air 06/01/17 20:00 Room Air 06/01/17 19:36 36.7 88 20 132/60 (84) 98 Room Air 06/01/17 16:00 36.3 63 16 206/73 (117) 96 Room Air 190/67 (108) 06/01/17 16:00 Room Air 06/01/17 13:50 59 16 146/87 (106) 95 Room Air 06/01/17 13:45 71 16 135/76 (95) 95 Room Air 06/01/17 13:40 60 16 135/66 (89) 96 Room Air 06/01/17 12:00 Room Air 06/01/17 11:35 36.4 56 16 179/68 (105) 91 Room Air Physical Exam General Appearance: no apparent distress Eyes: normal inspection ENT: hearing grossly normal Neck: no JVD Respiratory/Chest: no respiratory distress, no accessory muscle use Cardiovascular: no JVD Extremities: normal inspection Neurologic/Psychiatric: alert, normal mood/affect, oriented x 3 Skin: normal color Laboratory Results Last 24 Hours Test 06/01/17 11:36 06/01/17 18:54 06/01/17 21:10 06/01/17 22:14 Hemoglobin 13.2 g/dL 13.9 g/dL Hematocrit 39.6 % 42.1 % Sodium Level 141 mmol/L Potassium Level 3.8 mmol/L Chloride Level 109 mmol/L Carbon Dioxide Level 26 mmol/L Anion Gap 7.0 mmol/L Blood Urea Nitrogen 24 mg/dl Creatinine 1.26 mg/dl Est Creatinine Clear Calc Drug Dose 41.9 ml/min Estimated GFR () 60.7 Estimated GFR (Non- 52.4 BUN/Creatinine Ratio 19.0 Random Glucose 108 mg/dl Calcium Level 8.3 mg/dl Magnesium Level 2.1 mg/dl Thyroid Stimulating Hormone (TSH) 3.690 uIu/ml Bedside Glucose 111 mg/dl Test 06/02/17 09:32 06/02/17 09:37 Assessment and Plan A/P: BPH, incomplete bladder emptying, ? hx of prostate cancer, gross hematuria AFVSS. Pt pending discharge this AM. PSA noted to be 1.55 yesterday. Will continue to avoid any morse placement or CIC d/t pt's combative nature. Continue Flomax and finasteride for now. UC&S noted to be negative. Pt OK for d/c from [facility]. Will arrange for outpatient f/u with Dr. Quezada in 2-3 weeks. Would likely benefit from an outpatient cysto, but I doubt he will cooperate for procedure. Thanks for allowing us to participate in this pt's care.
[2017-06-02 10:49] VITALS: BP 114/60; PULSE 54; TEMP 37; O2SAT 97
--- NOTE | 2017-06-02 14:07 | OPERATIVE REPORT ---
DATE OF OPERATION: 06/02/2017 PREOPERATIVE DIAGNOSES: Pacemaker at elective replacement indicator, complete heart block. POSTOPERATIVE DIAGNOSES: Same. SURGEON: Raina Steele. TREND INVESTIGATOR: None. ANESTHESIA: Monitored and conscious sedation administered under my supervision by Loco Ruiz. Start time 13:13 and end time 1340 and a total of 2 mg of Versed, 50 mcg of fentanyl. IV FLUIDS: 50 mL. ANTIBIOTICS: One gram of Ancef. FINDINGS: See below. DRAINS: None. URINE OUTPUT: Not applicable. SPECIMENS: None. INDICATIONS: This is an 81-year-old gentleman who has a past medical history for complete heart block and underwent a dual chamber permanent pacemaker on 06/08/2006, history of a CVA as well as history of PE on Xarelto as well as dementia. He has been lost to follow up with his pacer checks, but finally did have a TTM done from the retirement that he resides in the [place] where he was found to be at [facility]. He was scheduled to see me in the office and on the day of the office visit when we put the machine programmer head in, it said that he is actually at EOL, end of life hit on 05/21/2017. So, he was recommended urgent generator change and was admitted to the hospital the night before for monitoring. CONSENT: Consent was obtained by the patient's over the phone as patient is demented. The patient's understood the risks, benefits, and alternatives to the procedure. Risks include but not limited to sudden cardiac , cardiac arrhythmias, cerebrovascular accident, myocardial infarction, bleeding and infection. The patient understood these risks and agreed to the procedure as planned. Informed consent was obtained. DESCRIPTION OF THE PROCEDURE: The patient was brought into the electrophysiology lab in a fasting state. He was connected to continuous cardiac monitoring. A timeout was performed to ensure patient identity and procedure correctly. The patient was prepped and draped over the right infraclavicular space in normal surgical standard fashion. Moderate conscious sedation was given throughout the procedure for patient's comfort level. [place] precautions were maintained throughout the procedure. A 10 mL of 1% lidocaine, bupivacaine mixture were given in the right deltopectoral groove. Incision was made over the right deltoid groove. Blunt dissection was performed down to the pulse generator and then the capsule was disrupted using iris scissors. The pulse generator was freed from the capsule and removed from the body. The leads were tested intraoperatively, see below for results. The capsule was disrupted inferiorly and caudally to allow for new blood flow. The pocket was then flushed with copious amounts of bacitracin saline wash and inspected for hemostasis. The new pulse generator was attached to the leads making sure that the pins were in appropriate position, passed the set screws and the set screws were all tightened. The new pulse generator was placed in the pocket and then the incision was closed in a 3-layer fashion with 2-0 Vicryl interrupted suture followed by 3-0 Vicryl suture followed by a 4-0 Monocryl stitch and Dermabond applied. EQUIPMENT: 1. Explanted generator is a [employer] Insignia Entra [id number], serial #[id number], implanted 06/08/2006. The patient's battery voltage is at EOL on 05/21/2017. 2. New pulse generator is a [employer] [id number], serial #[id number]. 3. Right atrial lead - [employer] [id number], serial #[id number], implanted 06/08/2006. 4. Right ventricular lead: [employer] [id number], serial #[id number], implanted 06/08/2006. INTRAOPERATIVE TESTIN. Right atrial lead: P-waves 1.2 millivolts, impedance 630 ohms, threshold 1.1 volts at 2.4 milliamps. 2. Right ventricular lead: R-waves 10.7 millivolts, impedance 423 ohms, threshold 0.7 volts at 2 milliamps. FINAL MEASUREMENTS OF THE DEVICE: 1. Right atrial lead: P-waves 1.4 millivolts, impedance 71 ohms, threshold 1.25 volts at 0.4 milliseconds. 2. Right ventricular lead: R-waves 11.2 millivolts, impedance 476 ohms, threshold 1 volt at 0.4 milliseconds. FINAL PARAMETERS: MVP-R 60/130. Right atrial amplitude 2.5 volts, pulse width 0.4 milliseconds, sensitivity 0.5 millivolts. Right ventricular amplitude 2 volts, pulse width 0.4 milliseconds and sensitivity 2.8 millivolts. IMPRESSION: Successful dual chamber rate responsive permanent pacemaker generator change secondary to device at EOL and complete heart block. PLAN: Monitor patient post-sedation, can continue his home medications including his Xarelto. He should follow up in our [place] office for device and wound check in 1 week's time. From an EP's perspective, he is okay for discharge back to [place]. I attest to the content of the Intraoperative Record and any orders documented therein. Any exception s are noted below.
[2017-06-02 14:35] VITALS: BP 114/60; PULSE 54; TEMP 37; O2SAT 97
== END 2017-06-02 15:08 | DRG 259 ==
LOC: C.2T 16:27
PROVIDERS: ADMIT Hospitalist; ATTEND Internal Medicine
PROC: 0JPT0PZ Removal of Cardiac Rhythm Related Device from Trunk Subcutaneous Tissue and Fascia, Open Approach (ICD-10-PCS; principal; 2017-06-02)
PROC: 0JH606Z Insertion of Pacemaker, Dual Chamber into Chest Subcutaneous Tissue and Fascia, Open Approach (ICD-10-PCS; principal; 2017-06-02)
DX: Z45.010 Encounter for checking and testing of cardiac pacemaker pulse generator [battery] (principal); I44.2 Atrioventricular block, complete; S37.30XA Unspecified injury of urethra, initial encounter; F03.90 Unspecified dementia, unspecified severity, without behavioral disturbance, psychotic disturbance, mood disturbance, and anxiety; N40.1 Benign prostatic hyperplasia with lower urinary tract symptoms; G40.909 Epilepsy, unspecified, not intractable, without status epilepticus; R33.8 Other retention of urine; Z79.01 Long term (current) use of anticoagulants; Z79.899 Other long term (current) drug therapy; Z86.711 Personal history of pulmonary embolism; Z86.73 Personal history of transient ischemic attack (TIA), and cerebral infarction without residual deficits; Y84.6 Urinary catheterization as the cause of abnormal reaction of the patient, or of later complication, without mention of misadventure at the time of the procedure; Y92.230 Patient room in hospital as the place of occurrence of the external cause